=== PATIENT | female | born 1945 | race Hispanic/Latino ===

== ENCOUNTER 2019-11-18 08:00 | Outpatient (CLI) | payer MEDICARE ==
[2019-11-18 11:48] VITALS: BP 142/79
[2019-11-20] MEDS ORDERED: LACTATED RINGERS 1,000 ML IV SCH (06:00)
== END 2019-11-18 09:00 | disposition home or self-care (01) ==
LOC: LAB 08:00 → EDSTATUS 11-20 09:00
PROVIDERS: ATTEND Urology
DX: Z03.818 Encounter for observation for suspected exposure to other biological agents ruled out (principal); N20.0 Calculus of kidney
CPT/HCPCS: U0003-CS